=== PATIENT | male | born 1980 | race Caucasian/White ===

== ENCOUNTER 2017-07-10 15:13 | Emergency (ER) | payer OTHER ==
[~2017-07-10] VITALS: Ht 180.3 cm; Wt 79.4 kg
[~2017-07-10 15:13] MED LIST: KEFLEX500 MG PO; ULTRACET PO
[2017-07-10] MEDS ORDERED: SINGULAIR10 MG (15:52)
[2017-07-10] MEDS ORDERED: XARELTO20 MG (15:52)
[2017-07-10] MEDS ORDERED: PENTASA500 MG (15:52)
== END 2017-07-11 | disposition home or self-care (01) ==
LOC: ER 15:13
DX: M54.5 Low back pain (principal); N20.0 Calculus of kidney